=== PATIENT | female | born 1950 | race American Indian/Alaskan Native ===

== ENCOUNTER 2017-03-18 11:58 | Emergency (ER) | payer MEDICARE ==
--- NOTE | 2017-03-18 14:36 | Cat Scan Report ---
CT HEAD WITHOUT CONTRAST: HISTORY: Head injury. TECHNIQUE: Sequential 2.5mm CT images. COMPARISON: none. FINDINGS: Cerebral Parenchyma: Within normal limits. Cerebellum: Within normal limits. Brainstem: Within normal limits. Ventricles: Normal. Sella: Normal. Extra-axial spaces: Normal. Basal Cisterns: Normal. Intracranial Hemorrhage: None. Midline Shift: None. Calvarium: Normal. Sinuses: Normal. Mastoid Air Cells: Normal. Visualized Orbits: Normal. IMPRESSION: Cranial CT scan within normal limits.
--- NOTE | 2017-03-18 14:41 | XRay Report ---
LEFT TIBIA/FIBULA: History: Leg injury. AP and lateral views of the left tibia/fibula demonstrate normal mineralization and contours for this patient's age. No destructive changes are noted and the adjacent soft tissues are normal. IMPRESSION: Normal left tibia/fibula.
--- NOTE | 2017-03-18 14:42 | XRay Report ---
RIGHT SHOULDER, 3 VIEWS: HISTORY: Right shoulder injury. Normal bone mineralization. No acute osseous injury or joint pathology is detected. The soft tissues are unremarkable. IMPRESSION: Right shoulder within normal limits.
--- NOTE | 2017-03-18 21:31 | Emergency Department Report ---
ED Syncope HPI - General Chief Complaint: Syncope Stated Complaint: SYNCOPE Time Seen by Provider: 03/18/17 21:24 Source: patient, family Exam Limitations: no limitations - History of Present Illness Initial Comments: Patient is a 67-year-old female that presents to the emergency room for syncope while having a shower. Patient states she has had a cough, fever and cold for 3 days. Patient states she passed out hitting her head right shoulder and left leg and also sustained a laceration to her right upper lip. Patient states she did lose consciousness for a brief moment. Patient denies chest pain and shortness of breath. Patient states she became dizzy prior to passing out. td not utd Timing/Prior Episodes: no prior history, single episode today Precipitating Factors: Positive: lightheadedness Context: standing, other (in hot shower) Loss of Consciousness: brief (seconds) Current Symptoms: headache, injury, other (right shoulder pain and left lower leg pain) - Related Data Allergies/Adverse Reactions: Allergies No Known Allergies Allergy (Verified 03/18/17 13:26) Home Medications: Ambulatory Orders HYDROcodone/APAP 5-325 [[place] 5/325] 1 each PO Q4HR PRN #10 tablet 03/18/17 Sulfamethoxazole/Trimethoprim [Bactrim DS TAB] 1 each PO BID 10 Days #20 tablet 03/18/17 ED Review of Systems ROS: Stated complaint: SYNCOPE Other details as noted in HPI Comment: All other systems reviewed and negative Constitutional: chills, fever Eyes: denies: eye pain, eye discharge, vision change ENT: denies: ear pain, throat pain Respiratory: cough. denies: shortness of breath, wheezing Cardiovascular: denies: chest pain, palpitations Endocrine: no symptoms reported Gastrointestinal: denies: abdominal pain, nausea, diarrhea Genitourinary: denies: urgency, dysuria, discharge Musculoskeletal: denies: back pain, joint swelling, arthralgia Skin: denies: rash, lesions Neurological: headache. denies: weakness, paresthesias Psychiatric: denies: anxiety, depression Hematological/Lymphatic: denies: easy bleeding, easy bruising ED Past Medical Hx - Past Medical History Previous Medical History?: No - Surgical History Past Surgical History?: No - Family History Family history: no significant - Social History Smoking Status: Never Smoker Substance Use Type: None - Medications Home Medications: Home Medications Medication Instructions Recorded Confirmed Last Taken Type HYDROcodone/APAP 5-325 [[place] 1 each PO Q4HR PRN #10 tablet 03/18/17 Unknown Rx 5/325] Sulfamethoxazole/Trimethoprim 1 each PO BID 10 Days #20 tablet 03/18/17 Unknown Rx [Bactrim DS TAB] ED Physical Exam - General Limitations: No Limitations General appearance: alert, in no apparent distress - Head Head exam: Present: atraumatic, normocephalic - Eye Eye exam: Present: normal appearance - ENT ENT exam: Present: mucous membranes dry, other (throat erythema noted. No exudate) - Neck Neck exam: Present: normal inspection - Respiratory Respiratory exam: Present: normal lung sounds bilaterally. Absent: respiratory distress - Cardiovascular Cardiovascular Exam: Present: regular rate, normal rhythm. Absent: systolic murmur, diastolic murmur, rubs, gallop - GI/Abdominal GI/Abdominal exam: Present: soft, normal bowel sounds - Extremities Exam Extremities exam: Present: normal inspection - Back Exam Back exam: Present: normal inspection - Neurological Exam Neurological exam: Present: alert, oriented X3 - Psychiatric Psychiatric exam: Present: normal affect, normal mood - Skin Skin exam: Present: warm, dry, normal color, other (right-sided lip lac. ). Absent: rash ED Course Vital Signs 03/18/17 03/18/17 03/18/17 13:26 17:28 21:28 Temperature 98 F 101.2 F H 98.7 F Pulse Rate 97 H 94 H 80 Respiratory 16 16 16 Rate Blood Pressure 115/69 Blood Pressure 117/75 118/69 [Right] O2 Sat by Pulse 97 98 99 Oximetry 03/18/17 03/18/17 03/19/17 22:22 22:52 00:15 Temperature 99 F Pulse Rate 74 Respiratory 16 16 16 Rate Blood Pressure Blood Pressure 135/70 [Right] O2 Sat by Pulse 96 Oximetry - Laceration /Wound Repair Right Face Wound Location: face (right upper lip) Wound Length (cm): 2 (cm) Wound's Depth, Shape: superficial, linear Wound Explored: clean Irrigated w/ Saline (ccs): 250 (mls) Betadine Prep?: Yes Anesthesia: 1% Lidocaine Wound Debrided: extensive Wound Repaired With: sutures Suture Size/Type: 3:0, nylon Number of Sutures: 2 Layer Closure?: Yes Deep Layer Suture Size/Type: 3:0 Number Deep Layer Sutures: 2 (vicryl) Sterile Dressing Applied?: Yes Progress: Patient has a 1.5 cm through and through right upper lip laceration. 2, 3.0 Vicryls placed to the deep layers of the lip and [address] with 3.0 nylon. ED Medical Decision Making - Lab Data Result diagrams: 03/18/17 21:58 03/18/17 21:58 - Radiology Data Radiology results: report reviewed No fractures noted and normal head CT Critical care attestation.: If time is entered above; I have spent that time in minutes in the direct care of this critically ill patient, excluding procedure time. ED Disposition Clinical Impression: Lip laceration, Shoulder pain, right, Left leg pain, Syncope, Fever, URI ( upper respiratory infection), Contusion of leg, left, Shoulder contusion, Head injury Disposition: TO HOME OR SELFCARE Is pt being admited?: No Does the pt Need Aspirin: No Condition: Stable Instructions: Syncope (ED) Additional Instructions: Patient to follow-up with plastic surgeon within 2-3 days. Patient to follow up with primary care orthopedist within 3-5 days. Patient take Tylenol and ibuprofen when necessary. Patient to follow-up in the ER if condition worsens. Patient to have sutures removed in 7-10 days. Patient take meds as directed Prescriptions: HYDROcodone/APAP 5-325 [[place] 5/325] 1 each PO Q4HR PRN #10 tablet PRN Reason: Pain Sulfamethoxazole/Trimethoprim [Bactrim DS TAB] 1 each PO BID 10 Days #20 tablet Referrals: PRIMARY CARE [Primary Care Provider] - 3-5 Days Time of Disposition: 23:32
[2017-03-18] MEDS ORDERED: DILAUDID IM ONE (22:12)
[2017-03-18] MEDS ORDERED: DILAUDID ONE (22:14)
[2017-03-18] MEDS ORDERED: NACL 0.9% IR ONE (22:17)
[2017-03-18] MEDS ORDERED: NACL 0.9% 500 ML IR ONE (22:17)
[2017-03-18] MEDS ORDERED: XYLOCAINE 2% INFILTRATI ONE ×2 (22:17→22:18)
[2017-03-18 22:59] LABS: Basophils % (Auto) 0.4 % (0.0-1.8); Hematocrit 39.6 % (30.3-42.9); Hemoglobin 13.1 gm/dl (10.1-14.3); Lymphocytes # (Auto) 1.5 K/mm3 (1.2-5.4); Lymphocytes % (Auto) 36.1 % (13.4-35.0); Mean Corpuscular HGB Conc 33 % (30-34); Mean Corpuscular Hemoglobin 29 pg (28-32); Mean Corpuscular Volume 88 fl (79-97); Monocytes # (Auto) 0.3 K/mm3 (0.0-0.8); Monocytes % (Auto) 8.2 % (0.0-7.3); Platelet Count 204 K/mm3 (140-440); Red Cell Distribution Width 12.9 % (13.2-15.2)
[2017-03-18] MEDS ORDERED: BOOSTRIX IM ONE (23:08)
[2017-03-18 23:26] LABS: Alanine Aminotransferase 12 units/L (7-56); Albumin 4.1 g/dL (3.9-5); BUN/Creatinine Ratio 14; Blood Urea Nitrogen 15 mg/dL (7-17); Hemolysis Index 1
[2017-03-19 00:16] VITALS: BP 135/70
== END 2017-03-19 01:07 | disposition home or self-care (01) ==
LOC: ED 11:58
DX: S01.511A Laceration without foreign body of lip, initial encounter (principal); W18.30XA Fall on same level, unspecified, initial encounter; Y93.89 Activity, other specified; Y92.89 Other specified places as the place of occurrence of the external cause; Y99.8 Other external cause status; S40.011A Contusion of right shoulder, initial encounter; S80.11XA Contusion of right lower leg, initial encounter; J06.9 Acute upper respiratory infection, unspecified
CPT/HCPCS: 12051; 36415; 70450; 73030; 73590; 80053; 85025; 87116; 87400; 87430; 90471; 90715; 93005; 93010; 96372; 99284; J1170